=== PATIENT | female | born 1980 ===

== ENCOUNTER 2016-09-06 05:37 | Inpatient (IN) ==
[2016-09-06] MEDS ORDERED: MEPERIDINE 50 MG/1 ML VIAL IV PRN (05:56)
[2016-09-06] MEDS ORDERED: ONDANSETRON 4 MG/2 ML VIAL IV PRN (05:56)
[2016-09-06] MEDS ORDERED: OXYTOCIN/LR 20 UNIT/1,000 ML BAG IV SCH (06:00)
[2016-09-06] MEDS: LACTATED RINGERS 1,000 ML IV SCH ×3 (06:05→20:00)
[2016-09-06 07:01] LABS: Basophils % 0.2 % (0.0-0.8); Eosinophils # 0.1 10*3/uL (0.0-0.87); Eosinophils % 0.7 % (0.00-10.9); Hematocrit 33.6 VOL% (35.7-47.0); Hemoglobin 10.6 GM/DL (12.0-16.0); Immature Granulocytes % 0.3 %; Immature Granulocytes Absolute 0.03 #; Lymphocytes % 22.6 % (21.3-54.2); Mean Corpuscular HGB Conc 31.5 GM/DL (32-36); Mean Corpuscular Hemoglobin 23 PG (27-34); Mean Corpuscular Volume 73.5 FL (87-102); Monocytes # 0.4 10*3/uL (0.11-0.8); Neutrophils # 6.4 10*3/uL (1.4-7.4); Neutrophils % 72.2 % (38.7-73.9); Platelet Count 358 T/CUMM (130-400); Red Blood Count 4.57 MC/CUMM (3.8-5.5); Red Cell Distribution Width 15.5 % (9.3-17.3); White Blood Count 8.9 T/CUMM (4-12)
[2016-09-06 07:41] LABS: Alanine Aminotransferase < 9 U/L (13-56); Albumin 2.4 G/DL (3.4-5.0); Alkaline Phosphatase 344 U/L (45-117); Aspartate Amino Transferase 10 U/L (0-37); Blood Urea Nitrogen 8 MG/DL (7-18); Calcium 8.4 MG/DL (8.5-10.1); Glucose 75 MG/DL (74-106); Osmolality,Calculated 275.4 MOS/KG (273-304); Potassium 3.9 MMOL/L (3.5-5.1); Sodium 140 MMOL/L (136-145); Total Protein 6.8 G/DL (6.4-8.3)
[2016-09-06 08:01] LABS: Rubella Antibody IgG 20.2 IU/ML
[2016-09-06 08:37] LABS: HIV Antigen/Antibody Result Nonreactive (Nonreactive); Hepatitis B Surface Ag Quant 0.34 Index; Hepatitis B Surface Ag Result Negative (Negative)
[2016-09-06] MEDS ORDERED: LACTATED RINGERS 1,000 ML IV ONE (08:51)
[2016-09-06] MEDS ORDERED: ePHEDrine 50 MG/ML AMP IV PRN (08:51)
[2016-09-06] MEDS ORDERED: hydrOXYzine HCL 25 MG/1 ML VIAL IM PRN (08:51)
[2016-09-06] MEDS ORDERED: PROMETHAZINE 25 MG/1 ML VIAL IM ONE (08:51)
[2016-09-06] MEDS ORDERED: FAMOTIDINE 20 MG/2 ML VIAL IV ONE (08:51)
[2016-09-06] MEDS ORDERED: diphenhydrAMINE 50 MG/1 ML VIAL IV PRN ×2 (08:51)
[2016-09-06] MEDS ORDERED: LACTATED RINGERS 250 ML IV PRN (08:51)
[2016-09-06] MEDS ORDERED: CITRIC ACID/SODIUM CITRATE 30 ML UDCUP PO ONE (08:51)
--- NOTE | 2016-09-06 09:32 | OB/GYN History & Physical ---
History of Present Illness Chief complaint: iN FOR ELECTIVE INDUCTION DUE TO TERM History of present illness: Ms. Jim is a 36 year old female who is a 8 para 5 AB 2 living 5 her MAGDIEL is 09/13/2016 for an estimated gestational age of 39 weeks. The patient presents for elective induction of labor due to term . The risk and benefits have been thoroughly discussed with this patient and significant other and plan of care has been discussed with Dr. Desai, all parties are in agreement with plan. The patient received her care through the [facility] The patient received routine care and her course was uneventful. labs: She is O+, rubella is immune , RPR is nonreactive, hepatitis B negative, HIV negative, and GBS culture negative. The patient has had 5 previous vaginal deliveries and she reported no complications with any of her pregnancies. Home Medications Medication Instructions Recorded Confirmed Type No Known Home Medications [No 09/06/16 09/06/16 History Known Home Medications] Allergies Allergy/AdvReac Type Severity Reaction Status Date / Time No Known Allergies Allergy Unverified 09/06/16 05:56 12 point system: reviewed and no additional remarkable complaints except as stated Medical,Surgical,& Family Hx - Medical History Medical History: noncontributory Reproductive: No history of: Ectopic , Complication - Surgical History Surgical History: noncontributory Reproductive Surgeries: Patient denies;: Section - Family History Family History: Reports;: Family Cancer (pgm), Family Diabetes (dad. brother, mgm) Denies;: Family Anesthesia Reaction, Family Heart Disease, Family Hematology , Family Hypertension, Family Psychiatric Problems, Family Stroke, Additional Family History - Social History Smoking Status: Never smoker Frequency of Alcohol Use: None Type of Drug Use: None Marital Status: Lives With:: Spouse Functional capacity: independent ambulation Exam CHOIR MEMBER - Constitutional Vitals: Vital Signs Temp Pulse Resp BP Pulse Ox 09/06/16 05:49 97.8 F 72 18 114/71 99 General appearance: no acute distress - Antepartum / Post Antepartum Exam Effacement: 3-4 cm Station: 60% Rupture: intact Presentation: vtx Heart Rate: 140s Breast: bilateral: normal Abdomen obstetrics: Present: bowel sounds normal Vagina: Present: normal moisture Uterus exam: Present: enlarged Anus/Rectum: Present: normal perianal skin - Head Head exam: Present: normal inspection - Respiratory Respiratory exam: Present: clear to auscultation bilaterally - Cardiovascular Cardiovascular exam: Present: regular rate and rhythm - GI/Abdominal GI/Abdominal exam: Present: normal bowel sounds, soft - Extremities Exam Extremities exam: Present: normal inspection - Back Exam Back exam: Present: normal inspection - Neurological Exam Neurological exam: Present: alert, oriented X3 - Psychiatric Psychiatric exam: Present: normal affect, normal mood - Skin Skin exam: Present: normal color, warm Assessment and Plan (1) Term Status: Acute Assessment and plan: Admit IV Fluids IV Pitocin per protocol AROM Epidural if desired Anticipate Current Visit: Yes Results - Labs CBC & BMP: 09/06/16 06:56 09/06/16 06:56
[2016-09-06 12:19] LABS: Apearance,Urine CLEAR (Clear); Bacteria,Urine Occasional /HPF (Few); Bilirubin,Urine Negative (Negative); Blood, Urine Negative (Negative); Glucose,Urine (UA) Negative (Negative); Ketones,Urine 5 mg/dL (Negative); Nitrite,Urine Negative (Negative); Protein,Urine Negative; RBC,Urine <1 /HPF (0-4); Squamous Epithelial Cell,Urine Occasional /HPF (0-10); Urine Color Yellow (Yellow); Urine Specific Gravity 1.004 (1.001-1.035); Urine Urobilinogen < 2.0 EU/DL (0.2-1.0); WBC,Urine <1 /HPF (0-6)
--- NOTE | 2016-09-06 16:45 | Event Note ---
HPI: Ms. Jim is a 36-year-old presented to the labor department for elective induction of labor due to term . Risk and benefits were thoroughly discussed with the patient and significant other, plan of care was discussed with Dr. Desai and all parties were in agreement plan. Stage I: The patient was admitted she received IV fluids and IV Pitocin per protocol. Artificial rupture membranes was performed with clear fluid noted. The patient received an epidural for pain control. She progressed in labor with a CAT 1 tracing. The patient had an uneventful course of labor. Stage II: The patient was complete complain of pressure and desire to push. The patient was for approximately 15 minutes after which time the 's head was delivered. The mouth and nose were suctioned on perineum. The remainder of the infant was delivered at 1554 a viable male infant was noted. The was placed on the mom's abdomen for skin to skin bonding. Apgars were 9 at 1 minute and 9 at 5 minutes. weight was 7 pounds and 11 ounces. A cord pH was obtained and sent to the lab. Stage III: Spontaneous delivery of a Sandoval placenta with a three-vessel cord noted. The placenta was further examined. Grossly intact. The vagina cervix was inspected with no tears or lacerations noted. Estimated blood loss was approximately 100 cc. At the time of dictation mother and baby are in stable condition.
[2016-09-06] MEDS ORDERED: IBUPROFEN 800 MG TABLET PO PRN (20:02)
[2016-09-07] MEDS: fentaNYL 2 MCG/ROPIV 0.2% EPID 150 ML EPIDURAL SCH (00:44)
[2016-09-07 07:32] LABS: Basophils % 0.2 % (0.0-0.8); Eosinophils # 0.1 10*3/uL (0.0-0.87); Eosinophils % 0.7 % (0.00-10.9); Hematocrit 33.1 VOL% (35.7-47.0); Hemoglobin 10.2 GM/DL (12.0-16.0); Immature Granulocytes % 0.4 %; Immature Granulocytes Absolute 0.04 #; Lymphocytes # 2.2 10*3/uL (1.4-4.0); Lymphocytes % 20.7 % (21.3-54.2); Mean Corpuscular HGB Conc 30.8 GM/DL (32-36); Mean Corpuscular Hemoglobin 23 PG (27-34); Mean Corpuscular Volume 74.5 FL (87-102); Mean Platelet Volume 9.7 FL (9.6-12.0); Monocytes # 0.4 10*3/uL (0.11-0.8); Monocytes % 4.1 % (1.7-12.7); Neutrophils # 7.7 10*3/uL (1.4-7.4); Neutrophils % 73.9 % (38.7-73.9); Platelet Count 304 T/CUMM (130-400); Red Blood Count 4.44 MC/CUMM (3.8-5.5); Red Cell Distribution Width 15.3 % (9.3-17.3); White Blood Count 10.4 T/CUMM (4-12)
[2016-09-07] MEDS: DOCUSATE SODIUM 100 MG CAPSULE PO SCH ×2 (08:55→21:20)
[2016-09-07] MEDS: oxyCODONE/ACETAMINOPHEN 5-325 MG TABLET PO PRN ×2 (09:17→22:34)
--- NOTE | 2016-09-07 09:31 | OB/GYN Progress Note ---
Assessment and Plan (1) Term Status: Acute Assessment and plan: Admit IV Fluids IV Pitocin per protocol AROM Epidural if desired Anticipate Current Visit: Yes (2) Vaginal delivery Status: Acute Assessment and plan: Initiate routine orders. Current Visit: Yes NURSE SUPERVISOR - PN: Subj Interval history: Stable with no complaints voiced at this time. Bonding well with . Exam NURSE SUPERVISOR - Constitutional Vitals: Vital Signs Temp Pulse Resp BP Pulse Ox 09/07/16 07:24 98.6 F 77 18 106/59 99 09/07/16 05:30 20 09/07/16 04:00 98.8 F 70 18 98/46 99 09/07/16 02:00 20 09/07/16 00:00 97.6 F 69 18 109/67 99 09/06/16 22:00 20 09/06/16 20:23 82 18 110/65 99 09/06/16 19:30 97.8 F 80 18 116/67 99 09/06/16 18:30 85 20 116/67 09/06/16 18:00 82 20 124/72 09/06/16 17:30 97.4 F L 85 20 117/66 General appearance: no acute distress - Antepartum / Post Post Exam Breast: bilateral: normal Abdomen obstetrics: Present: bowel sounds normal Vagina: Present: normal moisture, discharge (light lochia rubra) Uterus exam: Present: enlarged (FF ML) Anus/Rectum: Present: normal perianal skin - Respiratory Respiratory exam: Present: clear to auscultation bilaterally - Cardiovascular Cardiovascular exam: Present: regular rate and rhythm - GI/Abdominal GI/Abdominal exam: Present: normal bowel sounds, soft - Extremities Exam Extremities exam: Present: normal inspection - Back Exam Back exam: Present: normal inspection - Neurological Exam Neurological exam: Present: alert, oriented X3 - Psychiatric Psychiatric exam: Present: normal affect, normal mood - Skin Skin exam: Present: normal color, warm Results - Labs CBC & BMP: 09/07/16 07:14 09/06/16 06:56
--- NOTE | 2016-09-07 14:20 | Anesthesia ---
Anesthesia Post OP - Post Ansesthetic Evaluation Patient seen in post op: Yes Resp: within normal limits CV: within normal limits Mental: within normal limits Temp: within normal limits [id number]: within normal limits Nausea and Vomiting: within normal limits Pain: within normal limits
[2016-09-08] MEDS: DOCUSATE SODIUM 100 MG CAPSULE PO SCH (09:30)
[2016-09-08 11:40] VITALS: BP 114/70
--- NOTE | 2016-09-08 12:42 | Discharge Summary ---
Hospital Course - Hospital Course Hospital Course: Routine post course. Feels well today. Ready to go home Specialty Discharge - Follow Up or Referrals Follow up with: Ally Desai MD [Family Provider] - 10/16/16 8:30 am Discharge Plan - Discharge Data Disposition: Disch To Home/Self Care Condition at Discharge: Stable Discharge Diet: advance to your usual diet Activity: resume usual activities as tolerated Hygiene: may shower Weight Bearing at Discharge: full weight bearing Driving: no restrictions Contact your physician if you experience:: fever over 101, Difficulty voiding, Redness or swelling - Discharge Medications New Ibuprofen Tab [Motrin Tab] 800 mg PO Q6H PRN #30 tablet PRN Reason: Abdominal Pain - Follow Up or Referral Follow Up: Ally Desai MD [Family Provider] - 10/16/16 8:30 am - Forms/Instructions Exam - Constitutional Vitals: Period Temp Pulse Resp BP Sys/Maddox Pulse Ox Last 24 Hr 97.2 F-98.5 F 65-73 18-20 111-118/52-70 95-99 General appearance: no acute distress, over weight - Head Head exam: Present: normocephalic - Eye Eye exam: Present: EOMI Pupils: Present: LAURA - GI/Abdominal GI/Abdominal exam: Present: soft. Absent: tenderness DS: Provider Date of admission: 09/06/16 05:38 Primary care physician: Linda Urban MD Attending physician on admission: Ally Desai MD Consults: 09/06/16 05:56 Consult to Anesthesiology [CONS] Routine Consulting Provider: Reason for Anesthesiology: Epidural Consult Comment: Epidural for pain managment Discharging clinician: Imelda Graves MD
== END 2016-09-08 14:00 | disposition home or self-care (01) | DRG 775 ==
LOC: N.LDOUT 05:37 → N.LD 05:38 → N.OB 17:22
PROVIDERS: ADMIT Obstetrics & Gynecology; ATTEND Obstetrics & Gynecology